=== PATIENT | male | born 1955 | race Caucasian/White ===

== ENCOUNTER → 2016-08-27 | Outpatient (CLI) | payer OTHER ==
[~2016-08-27] MED LIST: GADOBUTROL 7.5 MMOL/7.5 ML PFS ONE
== END | disposition home or self-care (01) ==
LOC: CYBERKNIFE 08-26 09:47
PROVIDERS: ATTEND Radiology Radiation Oncology
DX: C79.31 Secondary malignant neoplasm of brain (principal); C76.8 Malignant neoplasm of other specified ill-defined sites; G93.89 Other specified disorders of brain; G35 Multiple sclerosis; I65.22 Occlusion and stenosis of left carotid artery; J32.0 Chronic maxillary sinusitis; J34.89 Other specified disorders of nose and nasal sinuses
CPT/HCPCS: 70553; A9585

== ENCOUNTER 2016-09-26 01:48 | Inpatient (IN) | payer OTHER ==
[~2016-09-26] VITALS: Ht 170.2 cm; Wt 56.9 kg
[2016-09-26] MEDS ORDERED: CLON0.1T PO (02:57)
[2016-09-26] MEDS ORDERED: LOSA50TA6 PO (02:57)
[2016-09-26] MEDS ORDERED: LEVE500T8 PO (02:57)
[2016-09-26] MEDS ORDERED: APIX5TAB PO (02:57)
[2016-09-26] MEDS ORDERED: METO50TA82 PO (02:57)
[2016-09-26] MEDS ORDERED: LEVO50TA5 PO (02:57)
[2016-09-26 03:14] LABS: ASPARTATE AMINO TRANSFERASE 26 U/L (15-37); BLOOD UREA NITROGEN 11 mg/dL (7-18)
[2016-09-26 03:21] LABS: IS PT STATUS REG ER OR PRE ER? YES
[2016-09-26] MEDS ORDERED: DEXAMETHASONE 4 MG/ML, 1ML IVPush ONE (03:30)
[2016-09-26] MEDS ORDERED: DEXAMETHASONE 4 MG/ML, 5ML ONE (03:31)
[2016-09-26] MEDS ORDERED: NS + 20MEQ KCL 1,000 ML IV SCH (04:25)
[2016-09-26] MEDS ORDERED: PROMETHAZINE 25 MG/ML, 1ML IM PRN (04:30)
[2016-09-26] MEDS ORDERED: HYDROcodone/APAP 5/325 TABLET PO PRN (04:30)
[2016-09-26] MEDS ORDERED: ONDANSETRON 2MG/ML, 2ML IVP PRN (04:30)
[2016-09-26] MEDS ORDERED: ACETAMINOPHEN 325 MG TABLET PO PRN (04:30)
[2016-09-26 05:56] VITALS: BP 156/82
[2016-09-26 06:45] VITALS: BP 104/81
[2016-09-26] MEDS: METOPROLOL TARTRATE 50 MG TABLET PO SCH ×2 (08:31→21:53)
[2016-09-26] MEDS: DEXAMETHASONE 4 MG/ML, 1ML IVPush SCH ×3 (08:32→21:52)
[2016-09-26] MEDS: APIXABAN 5 MG TABLET PO SCH ×2 (08:32→21:52)
[2016-09-26] MEDS: LEVOTHYROXINE 50 MCG TABLET PO SCH (08:32)
[2016-09-26] MEDS: LOSARTAN 50MG TABLET PO SCH ×2 (08:32→21:52)
[2016-09-26] MEDS: LEVETIRACETAM 500 MG TABLET PO SCH ×2 (08:32→21:52)
[2016-09-26 08:34] VITALS: BP 135/73
[2016-09-26] MEDS ORDERED: GADOBUTROL 7.5 MMOL/7.5 ML PFS ONE (12:09)
[2016-09-26 15:07] VITALS: BP 108/62
[2016-09-26] MEDS ORDERED: SODIUM CHLORIDE 3% 500 ML IV SCH (17:00)
[2016-09-26] MEDS: SODIUM CHLORIDE 3% 500 ML IV SCH (18:41)
[2016-09-26 19:26] VITALS: BP 117/49
[2016-09-26 20:02] VITALS: BP 133/69
[2016-09-27 03:28] VITALS: BP 148/70
[2016-09-27] MEDS: DEXAMETHASONE 4 MG/ML, 1ML IVPush SCH ×4 (03:38→20:49)
[2016-09-27 05:25] LABS: BLOOD UREA NITROGEN 21 mg/dL (7-18)
[2016-09-27 08:38] VITALS: BP 130/75
[2016-09-27] MEDS: LEVOTHYROXINE 50 MCG TABLET PO SCH (09:14)
[2016-09-27] MEDS: METOPROLOL TARTRATE 50 MG TABLET PO SCH ×2 (09:14→20:49)
[2016-09-27] MEDS: LEVETIRACETAM 500 MG TABLET PO SCH ×2 (09:14→20:49)
[2016-09-27] MEDS: APIXABAN 5 MG TABLET PO SCH ×2 (09:14→20:49)
[2016-09-27] MEDS: LOSARTAN 50MG TABLET PO SCH ×2 (09:14→20:48)
[2016-09-27 13:40] VITALS: BP 175/70
[2016-09-27] MEDS: SODIUM CHLORIDE 3% 500 ML IV SCH (16:55)
[2016-09-27 20:37] VITALS: BP 153/80
[2016-09-28 02:36] VITALS: BP 164/77
[2016-09-28] MEDS: DEXAMETHASONE 4 MG/ML, 1ML IVPush SCH ×4 (03:41→20:40)
[2016-09-28 03:46] LABS: BLOOD UREA NITROGEN 21 mg/dL (7-18)
[2016-09-28] MEDS ORDERED: DEXA2TAB PO (07:35)
[2016-09-28] MEDS: APIXABAN 5 MG TABLET PO SCH ×2 (09:47→20:39)
[2016-09-28] MEDS: LEVOTHYROXINE 50 MCG TABLET PO SCH (09:47)
[2016-09-28] MEDS: METOPROLOL TARTRATE 50 MG TABLET PO SCH ×2 (09:48→20:39)
[2016-09-28] MEDS: LEVETIRACETAM 500 MG TABLET PO SCH ×2 (09:48→20:39)
[2016-09-28] MEDS: LOSARTAN 50MG TABLET PO SCH ×2 (09:50→20:40)
[2016-09-28 09:54] VITALS: BP 178/81
[2016-09-28 13:53] VITALS: BP 174/77
[2016-09-28 19:44] VITALS: BP 172/77
[2016-09-29 02:17] VITALS: BP 177/73
[2016-09-29] MEDS: DEXAMETHASONE 4 MG/ML, 1ML IVPush SCH ×2 (02:58→08:04)
[2016-09-29 05:42] LABS: BLOOD UREA NITROGEN 20 mg/dL (7-18)
[2016-09-29 07:30] VITALS: BP 178/77
[2016-09-29] MEDS: METOPROLOL TARTRATE 50 MG TABLET PO SCH (08:04)
[2016-09-29] MEDS: LEVOTHYROXINE 50 MCG TABLET PO SCH (08:04)
[2016-09-29] MEDS: LEVETIRACETAM 500 MG TABLET PO SCH (08:04)
[2016-09-29] MEDS: APIXABAN 5 MG TABLET PO SCH (08:04)
[2016-09-29] MEDS: LOSARTAN 50MG TABLET PO SCH (08:04)
[2016-09-29] MEDS ORDERED: SODIUM CHLORIDE 1 GM TABLET PO SCH ×2 (09:00)
[2016-09-29] MEDS ORDERED: SODI1TAB15 PO (11:40)
[2016-09-29] MEDS ORDERED: DEXA4TAB PO (11:41)
== END 2016-09-29 13:23 | DRG 81 ==
LOC: ED 03:11 → EDIP 03:46 → 4NOR 05:11 → 3NW 20:10
DX: G93.6 Cerebral edema (principal); C79.31 Secondary malignant neoplasm of brain; C34.90 Malignant neoplasm of unspecified part of unspecified bronchus or lung; D68.59 Other primary thrombophilia; E44.0 Moderate protein-calorie malnutrition; E87.1 Hypo-osmolality and hyponatremia; G81.94 Hemiplegia, unspecified affecting left nondominant side; Z68.1 Body mass index [BMI] 19.9 or less, adult; E03.9 Hypothyroidism, unspecified; E78.5 Hyperlipidemia, unspecified; F17.210 Nicotine dependence, cigarettes, uncomplicated; G93.89 Other specified disorders of brain; I10 Essential (primary) hypertension; I48.91 Unspecified atrial fibrillation; I73.9 Peripheral vascular disease, unspecified; Z81.8 Family history of other mental and behavioral disorders; Z82.5 Family history of asthma and other chronic lower respiratory diseases; Z92.21 Personal history of antineoplastic chemotherapy; Z90.89 Acquired absence of other organs; Z79.01 Long term (current) use of anticoagulants; Z79.899 Other long term (current) drug therapy
CPT/HCPCS: 36415; 70450; 70553; 71010; 80048; 80053; 84295; 84484; 85025; 85610; 85730; 93005; 96374; 99285; A9585; J1100; J3480

== ENCOUNTER → 2016-11-20 | Outpatient (CLI) | payer OTHER ==
[~2016-11-20] MED LIST changes: +APIX5TAB PO; +CLON0.1T PO; +DEXA2TAB PO; +DEXA4TAB PO; -GADOBUTROL 7.5 MMOL/7.5 ML PFS ONE; +GADOBUTROL 7.5 MMOL/7.5 ML VIAL ONE; +LEVE500T8 PO; +LEVO50TA5 PO; +LOSA50TA6 PO; +METO50TA82 PO; +SODI1TAB15 PO
== END | disposition home or self-care (01) ==
LOC: CFH 08:30 → MERGE 08:30
PROVIDERS: ATTEND Radiology Radiation Oncology
DX: C79.31 Secondary malignant neoplasm of brain (principal)
CPT/HCPCS: 70553; A9585

== ENCOUNTER → 2017-01-13 | Outpatient (CLI) | payer OTHER ==
[~2017-01-13] MED LIST changes: -GADOBUTROL 7.5 MMOL/7.5 ML VIAL ONE
== END | disposition home or self-care (01) ==
LOC: CARD 12:56
PROVIDERS: ATTEND Registered Nurse
DX: G40.211 Localization-related (focal) (partial) symptomatic epilepsy and epileptic syndromes with complex partial seizures, intractable, with status epilepticus (principal); Z85.841 Personal history of malignant neoplasm of brain
CPT/HCPCS: 95819

== ENCOUNTER → 2017-01-15 | Outpatient (CLI) | payer OTHER ==
[~2017-01-15] MED LIST changes: +GADOBUTROL 7.5 MMOL/7.5 ML VIAL ONE
== END | disposition home or self-care (01) ==
LOC: CFH 08:43
PROVIDERS: ATTEND Neurological Surgery
DX: C79.31 Secondary malignant neoplasm of brain (principal); C76.0 Malignant neoplasm of head, face and neck; J34.89 Other specified disorders of nose and nasal sinuses
CPT/HCPCS: 70553; 82565; A9585

== ENCOUNTER 2017-04-24 00:54 | Inpatient (IN) | payer OTHER ==
[~2017-04-24] VITALS: Ht 167.6 cm; Wt 57.8 kg
[~2017-04-24 00:54] MED LIST changes: -GADOBUTROL 7.5 MMOL/7.5 ML VIAL ONE
[2017-04-24 01:47] LABS: HEMATOCRIT 36.2 % (39.2-51.8); HEMOGLOBIN 12.5 g/dL (13.7-18.0); WHITE BLOOD COUNT 16.2 x10^3/uL (3.4-10)
[2017-04-24 02:00] LABS: ASPARTATE AMINO TRANSFERASE 10 U/L (15-37); BLOOD UREA NITROGEN 19 mg/dL (7-18)
[2017-04-24] MEDS ORDERED: SODIUM CHLORIDE 0.9% 1,000ML IVBOLUS ONE (02:00)
[2017-04-24] MEDS ORDERED: CEFTRIAXONE PMX 1GM/50ML 50 ML IVPB ONE (02:00)
[2017-04-24] MEDS ORDERED: SODIUM CHLORIDE FLUSH 10ML SYR IVF ONE (02:00)
[2017-04-24] MEDS ORDERED: AZITHROMYCIN 500 MG TABLET PO ONE (02:00)
[2017-04-24 02:06] LABS: IS PT STATUS REG ER OR PRE ER? YES
[2017-04-24] MEDS ORDERED: BACITRACIN ZINC OINT 500U/GM, 0.9 GM ONE (02:18)
[2017-04-24] MEDS ORDERED: CEFTRIAXONE PMX 1GM/50ML 50 ML ONE (02:40)
[2017-04-24] MEDS ORDERED: AZITHROMYCIN 250 MG TABLET ONE (02:40)
[2017-04-24] MEDS ORDERED: hydrALAzine 20 MG/ML, 1ML IVPush PRN (03:00)
[2017-04-24] MEDS ORDERED: ONDANSETRON 2MG/ML, 2ML IVPB PRN (03:00)
[2017-04-24] MEDS ORDERED: PHARMACY MAY ADJ FOR RENAL FX MC PRN (03:00)
[2017-04-24 03:56] VITALS: BP 139/63
[2017-04-24] MEDS ORDERED: ALBUTEROL/IPRATROPIUM 2.5MG/0.5MG, 3 ML NPPB PRN (04:00)
[2017-04-24] MEDS ORDERED: LEVO75TA5 PO (04:41)
[2017-04-24 06:37] VITALS: BP 133/70
[2017-04-24] MEDS ORDERED: APIXABAN 5 MG TABLET PO SCH (09:00)
[2017-04-24] MEDS ORDERED: LEVETIRACETAM 500 MG TABLET PO SCH (09:00)
[2017-04-24] MEDS: LOSARTAN 50MG TABLET PO SCH ×2 (10:28→21:35)
[2017-04-24] MEDS: METOPROLOL TARTRATE 50 MG TABLET PO SCH ×2 (10:28→21:36)
[2017-04-24] MEDS: DEXAMETHASONE 4 MG TABLET PO SCH ×3 (10:29→21:36)
[2017-04-24] MEDS: LEVOTHYROXINE 50 MCG TABLET PO SCH (10:29)
[2017-04-24] MEDS: NICOTINE 14MG/24 HR PATCH.TD24 TD SCH (10:29)
[2017-04-24] MEDS: FAMOTIDINE 20 MG/2 ML IV SCH ×2 (10:40→21:35)
[2017-04-24] MEDS: FLUTICASONE/VILANTEROL 100-25MCG/INH INH SCH (13:05)
[2017-04-24 14:09] VITALS: BP 115/70
[2017-04-24] MEDS ORDERED: BACLOFEN 10 MG TABLET PO PRN (17:00)
[2017-04-24 19:29] VITALS: BP 114/56
[2017-04-24] MEDS: LEVETIRACETAM 500 MG TABLET PO SCH (21:36)
[2017-04-25 01:43] VITALS: BP 153/59
[2017-04-25] MEDS ORDERED: AZITHROMYCIN 500 MG in SODIUM CHLORIDE 0.9% 250 ML IV SCH (02:30)
[2017-04-25] MEDS ORDERED: CEFTRIAXONE PMX 1GM/50ML 50 ML IVPB SCH (03:00)
[2017-04-25] MEDS: HYDROmorphone 2 MG/ML, 1ML IVPush PRN ×2 (03:11→03:19)
[2017-04-25 05:41] LABS: HEMATOCRIT 30.3 % (39.2-51.8); HEMOGLOBIN 10.6 g/dL (13.7-18.0)
[2017-04-25 05:50] LABS: BLOOD UREA NITROGEN 17 mg/dL (7-18)
[2017-04-25 07:03] VITALS: BP 138/72
[2017-04-25] MEDS: FAMOTIDINE 20 MG/2 ML IV SCH ×2 (08:54→21:19)
[2017-04-25] MEDS: LEVOTHYROXINE 50 MCG TABLET PO SCH (08:54)
[2017-04-25] MEDS: METOPROLOL TARTRATE 50 MG TABLET PO SCH ×2 (08:55→21:20)
[2017-04-25] MEDS: LEVETIRACETAM 500 MG TABLET PO SCH ×2 (08:55→21:20)
[2017-04-25] MEDS: FLUTICASONE/VILANTEROL 100-25MCG/INH INH SCH (08:56)
[2017-04-25] MEDS: LOSARTAN 50MG TABLET PO SCH ×2 (08:56→21:21)
[2017-04-25] MEDS: DEXAMETHASONE 4 MG TABLET PO SCH ×3 (08:56→21:20)
[2017-04-25] MEDS: NICOTINE 14MG/24 HR PATCH.TD24 TD SCH (08:57)
[2017-04-25 13:23] VITALS: BP 144/69
[2017-04-25] MEDS ORDERED: ENOXAPARIN 40 MG/0.4 ML SQ SCH (17:00)
[2017-04-25 18:37] VITALS: BP 135/65
[2017-04-25] MEDS: CEFDINIR 300 MG CAPSULE PO SCH (21:20)
[2017-04-26 02:51] VITALS: BP 154/77
[2017-04-26 04:44] LABS: HEMATOCRIT 32.8 % (39.2-51.8); HEMOGLOBIN 11.3 g/dL (13.7-18.0); WHITE BLOOD COUNT 9.9 x10^3/uL (3.4-10)
[2017-04-26 04:59] LABS: BLOOD UREA NITROGEN 17 mg/dL (7-18)
[2017-04-26 07:00] VITALS: BP 151/72
[2017-04-26] MEDS ORDERED: CEFD300C37 PO (07:10)
[2017-04-26] MEDS ORDERED: AZIT500T5 PO (07:10)
[2017-04-26] MEDS: CEFDINIR 300 MG CAPSULE PO SCH (08:18)
[2017-04-26] MEDS: FAMOTIDINE 20 MG/2 ML IV SCH (08:18)
[2017-04-26] MEDS: METOPROLOL TARTRATE 50 MG TABLET PO SCH (08:18)
[2017-04-26] MEDS: NICOTINE 14MG/24 HR PATCH.TD24 TD SCH (08:19)
[2017-04-26] MEDS: LEVETIRACETAM 500 MG TABLET PO SCH (08:19)
[2017-04-26] MEDS: LOSARTAN 50MG TABLET PO SCH (08:19)
[2017-04-26] MEDS: DEXAMETHASONE 4 MG TABLET PO SCH (08:19)
[2017-04-26] MEDS: FLUTICASONE/VILANTEROL 100-25MCG/INH INH SCH (08:19)
[2017-04-26] MEDS: LEVOTHYROXINE 50 MCG TABLET PO SCH (08:24)
[2017-04-26] MEDS ORDERED: AZITHROMYCIN 500 MG TABLET PO SCH (09:00)
[2017-04-26 13:20] VITALS: BP 148/68
== END 2017-04-26 15:35 | disposition home or self-care (01) | DRG 195 ==
LOC: ED 02:00 → EDIP 02:47 → 3NW 03:27
PROVIDERS: ADMIT Family Medicine; ATTEND Family Medicine
DX: J15.9 Unspecified bacterial pneumonia (principal); I48.0 Paroxysmal atrial fibrillation; E03.9 Hypothyroidism, unspecified; G40.909 Epilepsy, unspecified, not intractable, without status epilepticus; I10 Essential (primary) hypertension; I73.9 Peripheral vascular disease, unspecified; R29.6 Repeated falls; Z66 Do not resuscitate; Z85.819 Personal history of malignant neoplasm of unspecified site of lip, oral cavity, and pharynx; Z87.891 Personal history of nicotine dependence; Z85.841 Personal history of malignant neoplasm of brain
CPT/HCPCS: 36415; 70450; 71010; 80048; 80053; 81003; 83605; 84145; 84484; 85025; 85610; 85730; 87040; 93005; 93922; 93925; 96365; J0456; J0696; J1170; J1650; J7030; J7050; S0028

== ENCOUNTER → 2017-05-03 | Outpatient (CLI) | payer OTHER ==
[~2017-05-03] MED LIST changes: +AZIT500T5 PO; +BACL-19 PO; +CEFD300C37 PO; +HYDR25TA6 PO; +LEVE10007 PO; +LEVO500T8 PO; +LEVO75TA5 PO
[2017-05-03 10:22] LABS: HEMATOCRIT 37.4 % (39.2-51.8); WHITE BLOOD COUNT 11.8 x10^3/uL (3.4-10)
[2017-05-03 10:33] LABS: BLOOD UREA NITROGEN 15 mg/dL (7-18)
[2017-05-03 10:37] LABS: ASPARTATE AMINO TRANSFERASE 20 U/L (15-37)
== END | disposition home or self-care (01) ==
LOC: STAR 09:06
PROVIDERS: ATTEND Neurological Surgery
DX: Z01.811 Encounter for preprocedural respiratory examination (principal); R91.8 Other nonspecific abnormal finding of lung field; C79.31 Secondary malignant neoplasm of brain
CPT/HCPCS: 36415; 71020; 80053; 85025; 85610; 85730

== ENCOUNTER 2017-05-04 20:14 | Inpatient (IN) | payer OTHER ==
[~2017-05-04] VITALS: Ht 167.6 cm; Wt 57.8 kg
[~2017-05-04 20:14] MED LIST changes: -LEVO500T8 PO
[2017-05-04] MEDS ORDERED: SODIUM CHLORIDE 0.9% 1,000 ML IV ONE (20:39)
[2017-05-04] MEDS ORDERED: DEXAMETHASONE 4 MG/ML, 1ML IVPush ONE (21:00)
[2017-05-04] MEDS ORDERED: SODIUM CHLORIDE FLUSH 10ML SYR IVF ONE (21:00)
[2017-05-04] MEDS ORDERED: DEXAMETHASONE 4 MG/ML, 1ML ONE (21:01)
[2017-05-04] MEDS ORDERED: LEVO500T8 PO (21:18)
[2017-05-04 21:26] LABS: HEMOGLOBIN 12.4 g/dL (13.7-18.0)
[2017-05-04 21:38] LABS: ASPARTATE AMINO TRANSFERASE 27 U/L (15-37); BLOOD UREA NITROGEN 16 mg/dL (7-18)
[2017-05-04 22:13] LABS: DIFF TOTAL CELLS COUNTED 100 CELL DIFF
[2017-05-04 22:17] LABS: VERIFY COUNTS? YES
[2017-05-04] MEDS: SODIUM CHLORIDE HOMEMEDPO SCH (23:00)
[2017-05-04] MEDS ORDERED: ONDANSETRON 2MG/ML, 2ML IVPush PRN (23:00)
[2017-05-04] MEDS ORDERED: POLYETHYLENE GLYCOL 17 GM PACKET PO PRN (23:00)
[2017-05-04] MEDS: POTASSIUM CHLORIDE HOMEMEDPO SCH (23:00)
[2017-05-04] MEDS ORDERED: BISACODYL 10 MG SUPP PR PRN (23:00)
[2017-05-05] MEDS: CEFTRIAXONE PMX 1GM/50ML 50 ML IV SCH (00:03)
[2017-05-05] MEDS: SODIUM CHLORIDE 0.9% 1,000 ML IV SCH ×2 (00:03→15:53)
[2017-05-05] MEDS: LEVETIRACETAM 500 MG TABLET PO SCH ×4 (00:18→21:40)
[2017-05-05] MEDS: BACLOFEN 10 MG TABLET PO SCH ×4 (00:18→21:40)
[2017-05-05] MEDS: LOSARTAN 50MG TABLET PO SCH ×3 (00:18→21:40)
[2017-05-05] MEDS: METOPROLOL TARTRATE 50 MG TABLET PO SCH ×3 (00:18→21:39)
[2017-05-05] MEDS: NICOTINE 21 MG/24 HR PATCH.TD24 TD SCH ×2 (00:19→22:10)
[2017-05-05] MEDS: AZITHROMYCIN 500 MG in SODIUM CHLORIDE 0.9% 250 ML IV SCH (00:44)
[2017-05-05] MEDS: DEXAMETHASONE 4 MG/ML, 1ML IVPush SCH ×4 (03:12→22:10)
[2017-05-05 04:32] VITALS: BP 172/76
[2017-05-05 05:02] LABS: HEMATOCRIT 32.9 % (39.2-51.8); HEMOGLOBIN 11.4 g/dL (13.7-18.0); WHITE BLOOD COUNT 9.6 x10^3/uL (3.4-10)
[2017-05-05 05:15] LABS: BLOOD UREA NITROGEN 16 mg/dL (7-18)
[2017-05-05 05:18] LABS: ASPARTATE AMINO TRANSFERASE 22 U/L (15-37)
[2017-05-05 07:06] VITALS: BP 160/58
[2017-05-05] MEDS ORDERED: GADOBUTROL 7.5 MMOL/7.5 ML PFS ONE (08:17)
[2017-05-05] MEDS: SENNA/DOCUSATE TABLET PO SCH (10:51)
[2017-05-05] MEDS: LEVOTHYROXINE 75 MCG TABLET PO SCH (10:52)
[2017-05-05] MEDS: HYDROCHLOROTHIAZIDE 25 MG TABLET PO SCH (10:52)
[2017-05-05] MEDS: SODIUM CHLORIDE HOMEMEDPO SCH ×2 (10:54→21:00)
[2017-05-05] MEDS: POTASSIUM CHLORIDE HOMEMEDPO SCH ×2 (10:54→21:00)
[2017-05-05 20:03] VITALS: BP 155/73
[2017-05-06] MEDS: OXYcodone IR 5MG TABLET PO PRN (00:06)
[2017-05-06] MEDS: CEFTRIAXONE PMX 1GM/50ML 50 ML IV SCH (00:06)
[2017-05-06 00:13] VITALS: BP 152/72
[2017-05-06] MEDS: AZITHROMYCIN 500 MG in SODIUM CHLORIDE 0.9% 250 ML IV SCH (01:19)
[2017-05-06] MEDS: SODIUM CHLORIDE 0.9% 1,000 ML IV SCH ×2 (01:31→11:23)
[2017-05-06] MEDS: DEXAMETHASONE 4 MG/ML, 1ML IVPush SCH ×4 (04:45→22:31)
[2017-05-06] MEDS: POTASSIUM CHLORIDE HOMEMEDPO SCH ×2 (07:43→23:41)
[2017-05-06] MEDS: HYDROCHLOROTHIAZIDE 25 MG TABLET PO SCH (07:43)
[2017-05-06] MEDS: LEVETIRACETAM 500 MG TABLET PO SCH ×3 (07:43→22:31)
[2017-05-06] MEDS: LOSARTAN 50MG TABLET PO SCH ×2 (07:43→22:32)
[2017-05-06] MEDS: SODIUM CHLORIDE HOMEMEDPO SCH ×2 (07:43→23:41)
[2017-05-06] MEDS: BACLOFEN 10 MG TABLET PO SCH ×3 (07:43→22:31)
[2017-05-06] MEDS: LEVOTHYROXINE 75 MCG TABLET PO SCH (07:43)
[2017-05-06] MEDS: SENNA/DOCUSATE TABLET PO SCH (07:44)
[2017-05-06] MEDS: METOPROLOL TARTRATE 50 MG TABLET PO SCH ×2 (07:45→22:32)
[2017-05-06 08:00] VITALS: BP 177/77
[2017-05-06 13:55] VITALS: BP 163/62
[2017-05-06 21:07] LABS: BLOOD UREA NITROGEN 14 mg/dL (7-18)
[2017-05-06 21:23] LABS: HEMATOCRIT 26.9 % (39.2-51.8); HEMOGLOBIN 9.3 g/dL (13.7-18.0); WHITE BLOOD COUNT 10.8 x10^3/uL (3.4-10)
[2017-05-06] MEDS: ALBUTEROL/IPRATROPIUM 2.5MG/0.5MG, 3 ML NPPB SCH (22:30)
[2017-05-06 22:52] LABS: ABG COLLECTION SITE ARTERIAL LINE
[2017-05-06] MEDS ORDERED: PROPOFOL 100 ML IV PRN (23:28)
[2017-05-06] MEDS ORDERED: ONDANSETRON 2MG/ML, 2ML IV PRN (23:30)
[2017-05-06] MEDS ORDERED: MAGNESIUM HYDROXIDE 8%, 30ML UDC PO PRN (23:30)
[2017-05-06] MEDS ORDERED: PHARMACY MAY ADJ FOR RENAL FX MC SCH (23:30)
[2017-05-06] MEDS ORDERED: NITROPRUSSIDE 50 MG in DEXTROSE 5% 248 ML IV PRN (23:30)
[2017-05-06] MEDS ORDERED: LIDOCAINE-MPF 1%, 2ML ENDO PRN (23:30)
[2017-05-06] MEDS ORDERED: BISACODYL 10 MG SUPP PR PRN (23:30)
[2017-05-06] MEDS ORDERED: LABETALOL 250 MG in DEXTROSE 5% 200 ML IV PRN (23:30)
[2017-05-06] MEDS ORDERED: ACETAMINOPHEN 325 MG TABLET PO PRN (23:30)
[2017-05-06] MEDS: CEFTRIAXONE MC SCH (23:30)
[2017-05-06] MEDS ORDERED: HYDROmorphone 2 MG/ML, 1ML IV PRN ×2 (23:30)
[2017-05-06] MEDS ORDERED: ACETAMINOPHEN 650 MG SUPP PR PRN (23:30)
[2017-05-06] MEDS: CEFAZOLIN MC SCH (23:30)
[2017-05-07] MEDS: LEVETIRACETAM 1,000 MG in SODIUM CHLORIDE 0.9% 100 ML IV SCH ×3 (00:08→18:13)
[2017-05-07] MEDS: NS + 40MEQ KCL 1,000 ML IV SCH ×3 (00:08→19:56)
[2017-05-07] MEDS: NICOTINE 21 MG/24 HR PATCH.TD24 TD SCH ×2 (00:09→22:47)
[2017-05-07] MEDS: CEFAZOLIN PMX 1GM/50ML 50 ML IVPB SCH ×2 (00:10→09:38)
[2017-05-07] MEDS: CEFTRIAXONE PMX 1GM/50ML 50 ML IV SCH (01:24)
[2017-05-07] MEDS: AZITHROMYCIN 500 MG in SODIUM CHLORIDE 0.9% 250 ML IV SCH (01:51)
[2017-05-07] MEDS: ALBUTEROL/IPRATROPIUM 2.5MG/0.5MG, 3 ML NPPB SCH ×4 (02:30→13:57)
[2017-05-07] MEDS: DEXAMETHASONE 4 MG/ML, 1ML IVPush SCH ×4 (04:14→22:47)
[2017-05-07 04:37] LABS: ABG COLLECTION SITE ARTERIAL LINE
[2017-05-07 04:52] LABS: BLOOD UREA NITROGEN 12 mg/dL (7-18)
[2017-05-07 04:53] LABS: HEMATOCRIT 28.6 % (39.2-51.8); HEMOGLOBIN 9.8 g/dL (13.7-18.0); WHITE BLOOD COUNT 13.4 x10^3/uL (3.4-10)
[2017-05-07] MEDS ORDERED: POTASSIUM CHLORIDE 40 MEQ in SODIUM CHLORIDE 0.9% 100 ML IV ONE (06:00)
[2017-05-07] MEDS: CEFTRIAXONE MC SCH ×3 (07:30→22:28)
[2017-05-07] MEDS: CEFAZOLIN MC SCH ×3 (07:30→22:28)
[2017-05-07] MEDS: SENNA/DOCUSATE TABLET PO SCH (09:00)
[2017-05-07] MEDS: METOPROLOL TARTRATE 50 MG TABLET PO SCH ×2 (09:00→19:55)
[2017-05-07] MEDS: LEVOTHYROXINE 75 MCG TABLET PO SCH (09:00)
[2017-05-07] MEDS: BACLOFEN 10 MG TABLET PO SCH ×3 (09:00→19:55)
[2017-05-07] MEDS: POTASSIUM CHLORIDE HOMEMEDPO SCH ×2 (09:00→19:57)
[2017-05-07] MEDS: LOSARTAN 50MG TABLET PO SCH ×2 (09:00→19:55)
[2017-05-07] MEDS: HYDROCHLOROTHIAZIDE 25 MG TABLET PO SCH (09:00)
[2017-05-07] MEDS: SODIUM CHLORIDE HOMEMEDPO SCH ×2 (09:00→19:57)
[2017-05-07] MEDS: FAMOTIDINE 20 MG/2 ML IVPush SCH ×2 (10:59→19:55)
[2017-05-07] MEDS ORDERED: GADOBUTROL 7.5 MMOL/7.5 ML PFS ONE (15:50)
[2017-05-07] MEDS: OXYcodone IR 5MG TABLET PO PRN (19:55)
[2017-05-08] MEDS: CEFTRIAXONE PMX 1GM/50ML 50 ML IV SCH ×2 (00:01→23:25)
[2017-05-08] MEDS: AZITHROMYCIN 500 MG in SODIUM CHLORIDE 0.9% 250 ML IV SCH (00:39)
[2017-05-08] MEDS: LEVETIRACETAM 1,000 MG in SODIUM CHLORIDE 0.9% 100 ML IV SCH ×3 (02:31→17:18)
[2017-05-08] MEDS: DEXAMETHASONE 4 MG/ML, 1ML IVPush SCH ×4 (03:29→21:03)
[2017-05-08 03:54] LABS: HEMATOCRIT 27.9 % (39.2-51.8); HEMOGLOBIN 9.6 g/dL (13.7-18.0); WHITE BLOOD COUNT 13.2 x10^3/uL (3.4-10)
[2017-05-08 04:06] LABS: ASPARTATE AMINO TRANSFERASE 17 U/L (15-37); BLOOD UREA NITROGEN 11 mg/dL (7-18)
[2017-05-08 05:02] VITALS: BP 159/55
[2017-05-08] MEDS: CEFAZOLIN MC SCH (07:22)
[2017-05-08] MEDS: CEFTRIAXONE MC SCH (07:22)
[2017-05-08] MEDS ORDERED: AMLODIPINE 5 MG TABLET PO SCH (09:00)
[2017-05-08] MEDS: SODIUM CHLORIDE HOMEMEDPO SCH ×2 (09:00→21:00)
[2017-05-08] MEDS: SENNA/DOCUSATE TABLET PO SCH (09:00)
[2017-05-08] MEDS: POTASSIUM CHLORIDE HOMEMEDPO SCH ×2 (09:00→21:00)
[2017-05-08] MEDS: LOSARTAN 50MG TABLET PO SCH ×2 (09:36→21:03)
[2017-05-08] MEDS: METOPROLOL TARTRATE 25 MG TABLET PO SCH ×2 (09:36→17:18)
[2017-05-08] MEDS: NS + 40MEQ KCL 1,000 ML IV SCH (09:37)
[2017-05-08] MEDS: LEVOTHYROXINE 75 MCG TABLET PO SCH (09:37)
[2017-05-08] MEDS: BACLOFEN 10 MG TABLET PO SCH ×3 (09:37→21:03)
[2017-05-08] MEDS: FAMOTIDINE 20 MG/2 ML IVPush SCH ×2 (09:37→21:02)
[2017-05-08] MEDS: HYDROCHLOROTHIAZIDE 25 MG TABLET PO SCH (09:37)
[2017-05-08] MEDS ORDERED: MAGNESIUM SULFATE PMX 4GM/100M 100 ML IV ONE (12:00)
[2017-05-08 12:46] VITALS: BP 134/70
[2017-05-08] MEDS: OXYcodone IR 5MG TABLET PO PRN (19:16)
[2017-05-08 19:40] VITALS: BP 121/73
[2017-05-08] MEDS: NICOTINE 21 MG/24 HR PATCH.TD24 TD SCH (23:25)
[2017-05-09] MEDS: AZITHROMYCIN 500 MG in SODIUM CHLORIDE 0.9% 250 ML IV SCH (00:24)
[2017-05-09] MEDS: OXYcodone IR 5MG TABLET PO PRN ×2 (00:29→11:46)
[2017-05-09 01:06] VITALS: BP 157/67
[2017-05-09] MEDS: LEVETIRACETAM 1,000 MG in SODIUM CHLORIDE 0.9% 100 ML IV SCH ×3 (04:09→19:47)
[2017-05-09] MEDS: DEXAMETHASONE 4 MG/ML, 1ML IVPush SCH ×4 (04:09→22:41)
[2017-05-09 04:16] VITALS: BP 180/83
[2017-05-09 04:42] LABS: HEMATOCRIT 26.5 % (39.2-51.8); HEMOGLOBIN 9.1 g/dL (13.7-18.0); WHITE BLOOD COUNT 12.2 x10^3/uL (3.4-10)
[2017-05-09 04:54] LABS: ASPARTATE AMINO TRANSFERASE 20 U/L (15-37); BLOOD UREA NITROGEN 14 mg/dL (7-18)
[2017-05-09] MEDS: LEVOTHYROXINE 75 MCG TABLET PO SCH (05:05)
[2017-05-09] MEDS: METOPROLOL TARTRATE 25 MG TABLET PO SCH (05:06)
[2017-05-09] MEDS ORDERED: hydrALAzine 20 MG/ML, 1ML IV PRN (08:00)
[2017-05-09] MEDS: SENNA/DOCUSATE TABLET PO SCH (08:17)
[2017-05-09 08:20] VITALS: BP 171/76
[2017-05-09] MEDS: AMLODIPINE 5 MG TABLET PO SCH (08:20)
[2017-05-09] MEDS: BACLOFEN 10 MG TABLET PO SCH ×3 (08:20→20:34)
[2017-05-09] MEDS: POTASSIUM CHLORIDE HOMEMEDPO SCH ×2 (08:20→20:29)
[2017-05-09] MEDS: FAMOTIDINE 20 MG/2 ML IVPush SCH ×2 (08:20→20:34)
[2017-05-09] MEDS: SODIUM CHLORIDE HOMEMEDPO SCH ×2 (08:20→20:29)
[2017-05-09] MEDS: LOSARTAN 50MG TABLET PO SCH ×2 (08:20→20:34)
[2017-05-09 10:42] VITALS: BP 153/73
[2017-05-09 14:00] VITALS: BP 163/70
[2017-05-09] MEDS: CARVEDILOL 6.25 MG TABLET PO SCH (18:00)
[2017-05-09 20:00] VITALS: BP 137/73
[2017-05-09] MEDS: NICOTINE 21 MG/24 HR PATCH.TD24 TD SCH (22:41)
[2017-05-09] MEDS: CEFTRIAXONE PMX 1GM/50ML 50 ML IV SCH (23:57)
[2017-05-10] MEDS: AZITHROMYCIN 500 MG in SODIUM CHLORIDE 0.9% 250 ML IV SCH (00:46)
[2017-05-10 02:50] VITALS: BP 163/89
[2017-05-10] MEDS: DEXAMETHASONE 4 MG/ML, 1ML IVPush SCH ×4 (04:28→22:15)
[2017-05-10] MEDS: LEVETIRACETAM 1,000 MG in SODIUM CHLORIDE 0.9% 100 ML IV SCH ×3 (04:29→20:12)
[2017-05-10 05:41] LABS: HEMATOCRIT 25.5 % (39.2-51.8); HEMOGLOBIN 8.8 g/dL (13.7-18.0); WHITE BLOOD COUNT 10.2 x10^3/uL (3.4-10)
[2017-05-10] MEDS: LEVOTHYROXINE 75 MCG TABLET PO SCH (05:56)
[2017-05-10] MEDS: CARVEDILOL 6.25 MG TABLET PO SCH ×2 (05:56→17:29)
[2017-05-10] MEDS: ACETAMINOPHEN 325 MG TABLET PO PRN (06:07)
[2017-05-10 06:27] LABS: BLOOD UREA NITROGEN 16 mg/dL (7-18)
[2017-05-10 07:24] VITALS: BP 172/68
[2017-05-10] MEDS ORDERED: ERGOCALCIFEROL 50,000 UNIT CAPSULE PO SCH (08:30)
[2017-05-10] MEDS: SODIUM CHLORIDE HOMEMEDPO SCH ×2 (09:00→20:12)
[2017-05-10] MEDS: POTASSIUM CHLORIDE HOMEMEDPO SCH ×2 (09:00→20:12)
[2017-05-10] MEDS: SENNA/DOCUSATE TABLET PO SCH (09:10)
[2017-05-10] MEDS: FAMOTIDINE 20 MG/2 ML IVPush SCH ×2 (09:12→20:12)
[2017-05-10] MEDS: AMLODIPINE 5 MG TABLET PO SCH (09:12)
[2017-05-10] MEDS: BACLOFEN 10 MG TABLET PO SCH ×3 (09:12→20:13)
[2017-05-10] MEDS: LOSARTAN 50MG TABLET PO SCH ×2 (09:12→20:13)
[2017-05-10 13:52] VITALS: BP 139/67
[2017-05-10 20:00] VITALS: BP 120/67
[2017-05-10] MEDS: NICOTINE 21 MG/24 HR PATCH.TD24 TD SCH (22:18)
[2017-05-10] MEDS: TEMAZEPAM 15 MG CAPSULE PO PRN (22:22)
[2017-05-10] MEDS: CEFTRIAXONE PMX 1GM/50ML 50 ML IV SCH (23:58)
[2017-05-11] MEDS: AZITHROMYCIN 500 MG in SODIUM CHLORIDE 0.9% 250 ML IV SCH (00:58)
[2017-05-11 03:56] VITALS: BP 153/74
[2017-05-11] MEDS: LEVETIRACETAM 1,000 MG in SODIUM CHLORIDE 0.9% 100 ML IV SCH ×3 (04:04→20:05)
[2017-05-11] MEDS: DEXAMETHASONE 4 MG/ML, 1ML IVPush SCH ×3 (04:04→20:05)
[2017-05-11 05:31] LABS: HEMATOCRIT 27.4 % (39.2-51.8); HEMOGLOBIN 9.4 g/dL (13.7-18.0); WHITE BLOOD COUNT 13.4 x10^3/uL (3.4-10)
[2017-05-11] MEDS: CARVEDILOL 6.25 MG TABLET PO SCH ×2 (05:53→17:15)
[2017-05-11] MEDS: LEVOTHYROXINE 75 MCG TABLET PO SCH (05:54)
[2017-05-11 08:17] VITALS: BP 148/66
[2017-05-11] MEDS: LOSARTAN 50MG TABLET PO SCH ×2 (08:47→20:14)
[2017-05-11] MEDS: BACLOFEN 10 MG TABLET PO SCH ×3 (08:47→20:13)
[2017-05-11] MEDS: SENNA/DOCUSATE TABLET PO SCH (08:47)
[2017-05-11] MEDS: AMLODIPINE 5 MG TABLET PO SCH (08:47)
[2017-05-11] MEDS: FAMOTIDINE 20 MG/2 ML IVPush SCH (08:47)
[2017-05-11] MEDS: SODIUM CHLORIDE HOMEMEDPO SCH ×2 (08:48→20:05)
[2017-05-11] MEDS: POTASSIUM CHLORIDE HOMEMEDPO SCH ×2 (08:48→20:05)
[2017-05-11 13:58] VITALS: BP 119/62
[2017-05-11] MEDS: FAMOTIDINE 20 MG TABLET PO SCH (20:12)
[2017-05-11 20:23] VITALS: BP 130/69
[2017-05-11] MEDS: NICOTINE 21 MG/24 HR PATCH.TD24 TD SCH (23:46)
[2017-05-11] MEDS: CEFTRIAXONE PMX 1GM/50ML 50 ML IV SCH (23:47)
[2017-05-11] MEDS: TEMAZEPAM 15 MG CAPSULE PO PRN (23:49)
[2017-05-12] MEDS: AZITHROMYCIN 500 MG in SODIUM CHLORIDE 0.9% 250 ML IV SCH (01:12)
[2017-05-12 01:38] VITALS: BP 131/72
[2017-05-12 03:24] VITALS: BP 143/69
[2017-05-12] MEDS: LEVETIRACETAM 1,000 MG in SODIUM CHLORIDE 0.9% 100 ML IV SCH ×3 (04:18→20:33)
[2017-05-12] MEDS: DEXAMETHASONE 4 MG/ML, 1ML IVPush SCH ×3 (04:18→20:33)
[2017-05-12] MEDS: ACETAMINOPHEN 325 MG TABLET PO PRN (04:25)
[2017-05-12] MEDS: CARVEDILOL 6.25 MG TABLET PO SCH ×2 (06:05→17:05)
[2017-05-12] MEDS: LEVOTHYROXINE 75 MCG TABLET PO SCH (06:05)
[2017-05-12 06:40] VITALS: BP 171/71
[2017-05-12 07:37] LABS: HEMATOCRIT 26.8 % (39.2-51.8); HEMOGLOBIN 9.3 g/dL (13.7-18.0); WHITE BLOOD COUNT 12.3 x10^3/uL (3.4-10)
[2017-05-12] MEDS: LOSARTAN 50MG TABLET PO SCH ×2 (08:15→20:35)
[2017-05-12] MEDS: BACLOFEN 10 MG TABLET PO SCH ×3 (08:15→20:34)
[2017-05-12] MEDS: AMLODIPINE 5 MG TABLET PO SCH (08:15)
[2017-05-12] MEDS: FAMOTIDINE 20 MG TABLET PO SCH ×2 (08:15→20:35)
[2017-05-12] MEDS: SENNA/DOCUSATE TABLET PO SCH (08:35)
[2017-05-12] MEDS: SODIUM CHLORIDE HOMEMEDPO SCH ×2 (08:43→20:33)
[2017-05-12] MEDS: POTASSIUM CHLORIDE HOMEMEDPO SCH ×2 (08:43→20:33)
[2017-05-12] MEDS ORDERED: MAGNESIUM SULFATE PMX 2GM/50ML 50 ML IV ONE (09:30)
[2017-05-12 12:25] VITALS: BP 114/54
[2017-05-12] MEDS ORDERED: FAMO20TA7 PO (14:22)
[2017-05-12] MEDS ORDERED: OXYC5TAB3 PO (14:22)
[2017-05-12] MEDS ORDERED: AMLO5TAB2 PO (14:22)
[2017-05-12] MEDS ORDERED: CARV12.543 PO (14:22)
[2017-05-12] MEDS ORDERED: DEXA4TAB PO (14:22)
[2017-05-12] MEDS ORDERED: ERGO500017 PO (14:22)
[2017-05-12 15:13] VITALS: BP 136/67
[2017-05-12 20:30] VITALS: BP 146/65
[2017-05-12] MEDS: NICOTINE 21 MG/24 HR PATCH.TD24 TD SCH (22:02)
[2017-05-12] MEDS: CEFTRIAXONE PMX 1GM/50ML 50 ML IV SCH (23:37)
[2017-05-13] MEDS: AZITHROMYCIN 500 MG in SODIUM CHLORIDE 0.9% 250 ML IV SCH (00:29)
[2017-05-13 00:48] VITALS: BP 147/60
[2017-05-13] MEDS: ACETAMINOPHEN 325 MG TABLET PO PRN (03:28)
[2017-05-13] MEDS: LEVETIRACETAM 1,000 MG in SODIUM CHLORIDE 0.9% 100 ML IV SCH ×2 (03:28→12:49)
[2017-05-13 04:33] VITALS: BP 138/72
[2017-05-13 06:15] VITALS: BP 150/77
[2017-05-13] MEDS: LEVOTHYROXINE 75 MCG TABLET PO SCH (06:16)
[2017-05-13] MEDS: CARVEDILOL 6.25 MG TABLET PO SCH (06:16)
[2017-05-13 07:00] LABS: HEMATOCRIT 26.8 % (39.2-51.8); HEMOGLOBIN 9.2 g/dL (13.7-18.0); WHITE BLOOD COUNT 11.6 x10^3/uL (3.4-10)
[2017-05-13 07:20] VITALS: BP 147/63
[2017-05-13] MEDS: LOSARTAN 50MG TABLET PO SCH (08:16)
[2017-05-13] MEDS: DEXAMETHASONE 4 MG/ML, 1ML IVPush SCH (08:16)
[2017-05-13] MEDS: BACLOFEN 10 MG TABLET PO SCH (08:18)
[2017-05-13] MEDS: FAMOTIDINE 20 MG TABLET PO SCH (08:19)
[2017-05-13] MEDS: AMLODIPINE 5 MG TABLET PO SCH (08:19)
[2017-05-13] MEDS: SENNA/DOCUSATE TABLET PO SCH (08:19)
[2017-05-13] MEDS: SODIUM CHLORIDE HOMEMEDPO SCH (08:31)
[2017-05-13] MEDS: POTASSIUM CHLORIDE HOMEMEDPO SCH (08:31)
[2017-05-13 13:25] VITALS: BP 149/70
== END 2017-05-13 13:37 | DRG 25 ==
LOC: ED 21:18 → EDIP 21:53 → 3NW 23:42 → ICU 05-06 21:30 → CSU 05-07 19:35 → 4EST 05-08 11:45
PROVIDERS: ADMIT Hospitalist; ATTEND Hospitalist
PROC: 00B00ZZ Excision of Brain, Open Approach (ICD-10-PCS; principal; 2017-05-06)
PROC: 4A11X4G Monitoring of Peripheral Nervous Electrical Activity, Intraoperative, External Approach (ICD-10-PCS; 2017-05-06)
DX: C71.9 Malignant neoplasm of brain, unspecified (principal); E43 Unspecified severe protein-calorie malnutrition; J96.00 Acute respiratory failure, unspecified whether with hypoxia or hypercapnia; Z99.11 Dependence on respirator [ventilator] status; J18.9 Pneumonia, unspecified organism; L89.159 Pressure ulcer of sacral region, unspecified stage; L89.302 Pressure ulcer of unspecified buttock, stage 2; D68.69 Other thrombophilia; E87.1 Hypo-osmolality and hyponatremia; G81.94 Hemiplegia, unspecified affecting left nondominant side; J44.0 Chronic obstructive pulmonary disease with (acute) lower respiratory infection; D64.9 Anemia, unspecified; Z66 Do not resuscitate; I48.0 Paroxysmal atrial fibrillation; G40.909 Epilepsy, unspecified, not intractable, without status epilepticus; E03.9 Hypothyroidism, unspecified; Z68.20 Body mass index [BMI] 20.0-20.9, adult; E55.9 Vitamin D deficiency, unspecified; E78.5 Hyperlipidemia, unspecified; F17.210 Nicotine dependence, cigarettes, uncomplicated; I10 Essential (primary) hypertension; Z74.01 Bed confinement status; Z79.01 Long term (current) use of anticoagulants; Z82.3 Family history of stroke; Z82.49 Family history of ischemic heart disease and other diseases of the circulatory system; Z82.5 Family history of asthma and other chronic lower respiratory diseases; Z83.3 Family history of diabetes mellitus; Z85.118 Personal history of other malignant neoplasm of bronchus and lung; Z85.810 Personal history of malignant neoplasm of tongue; Z92.3 Personal history of irradiation
CPT/HCPCS: 36415; 36600; 70552; 70553; 71010; 80048; 80053; 80061; 82306; 82330; 82607; 82803; 82947; 83735; 84132; 84295; 84443; 84478; 85014; 85025; 85610; 85730; 86850; 86900; 86923; 87070; 87075; 87081; 87205; 88307; 88331; 93005; 94002; 94003; 94640; 95938; 95941; 96361; 96374; A9585; C1713; J0171; J0456; J0690; J0696; J1100; J1953; J2405; J2704; J2710; J3010; J3480; J3490; J7620; A4648; J0330; J1940; J3475; J7030; J7050; S0028